=== PATIENT | male | born 2000 | race Caucasian/White ===

== ENCOUNTER 2022-03-02 15:06 | Observation (INO) | payer BC ==
[~2022-03-02] VITALS: Ht 193 cm; Wt 60.0 kg
[2022-03-02] VITALS (305 sets, daily range): BP systolic 135–140; BP diastolic 85–93; PULSE 105–112; TEMP 98.5–99.1; O2SAT 96–100
[2022-03-02 15:32] LABS: BASO % 0.3 % (0.0-2.0); GRAN # 4.2 K/mm3 (1.4-6.5); GRAN % 67.7 % (42.2-75.2); HEMATOCRIT 43.8 % (42.0-52.0); HEMOGLOBIN 14.9 g/dl (13.5-18.0); LYMPH # 1.5 K/mm3 (1.2-3.4); LYMPH % 23.9 % (20.0-51.0); MEAN CELL VOLUME 80 fl (80.0-100.0); MEAN CORPUSCULAR HEMOGLOBIN 27 pg (27-31); MEAN CORPUSCULAR HGB CONC 34 g/dl (33.0-37.0); MONO # 0.5 K/mm3 (0.1-0.6); MONO % 7.9 % (1.7-9.3); PLATELET COUNT 282 K/mm3 (130-400); RED BLOOD COUNT 5.46 M/mm3 (4.20-5.60); REDCELL DISTRIBUTION WIDTH-CV 11.6 % (11.5-14.5)
[2022-03-02 15:41] LABS: COLLECTION METHOD CLEAN CATCH
[2022-03-02 15:49] LABS: MUCOUS Present (NOT PRESENT); SQUAMOUS EPITHELIAL None Seen /hpf (0-10); URINE BACTERIA None Seen /hpf (NONE SEEN); URINE RBC None Seen /hpf (0-2)
[2022-03-02 15:51] LABS: URINE APPEARANCE Clear (CLEAR/HAZY); URINE BLOOD Negative (NEGATIVE); URINE COLOR Yellow (YELLOW); URINE GLUCOSE 3+ (NEGATIVE); URINE KETONE 2+ (NEGATIVE); URINE NITRATE Negative (NEGATIVE); URINE PROTEIN(semi-quant) Negative (NEGATIVE); URINE UROBILINOGEN 0.2 E.U/dL (0.2-1.0)
[2022-03-02 15:52] LABS: ALANINE AMINOTRANSFERASE 49 U/L (0-55); ALBUMIN 4.3 gm/dL (3.5-5.0); ALKALINE PHOSPHATASE 106 U/L (40-150); ANION GAP 17 mmol/L (7-16); AST,SGOT 21 U/L (5-34); BILIRUBIN,TOTAL 0.7 mg/dL (0.2-1.2); BLOOD UREA NITROGEN 21 mg/dL (9-21); CALCIUM 9.7 mg/dL (8.4-10.2); CARBON DIOXIDE 18 mmol/L (22-29); CHLORIDE 95 mmol/L (98-107); CREATININE, serum 1.17 mg/dL (0.72-1.25); LIPASE 47 U/L (8-78); POTASSIUM 4.5 mmol/L (3.5-4.5); SODIUM 130 mmol/L (136-145); TOTAL PROTEIN 7.8 gm/dL (6.2-8.1)
[2022-03-02 16:01] LABS: GLUCOSE 697 mg/dL (70-99)
[2022-03-02 16:12] LABS: ACETONE,SERUM NEGATIVE
[2022-03-02 17:12] LABS: MAGNESIUM 1.9 mg/dL (1.6-2.6); PHOSPHOROUS 4.9 mg/dL (2.3-4.7)
[2022-03-02] MEDS ORDERED: PROZAC 20MG20 MG PO (17:36)
[2022-03-02 19:14] LABS: CREATININE, serum 0.85 mg/dL (0.72-1.25); POTASSIUM 3.5 mmol/L (3.5-4.5)
--- NOTE | 2022-03-02 19:55 | NUR ---
1720: PT ARRIVED TO ICU7 VIA ER STRETCHER WITH MOM AT BEDSIDE. PT A&O, ON ROOM AIR. VSS. PT DENIES ANY PAIN. PT ARRIVED ON INSULIN GTT @ 5 UNITS/HR. PT BS CHECKED @ 1730. PROTOCOL FOLLOWED. PT DENIES ANY CONCERNS. ALL QUESTIONS ANSWERED. 1914: REPORT GIVEN TO DOROTA ROD
[2022-03-02 21:26] LABS: CALCIUM 8.8 mg/dL (8.4-10.2); CREATININE, serum 0.78 mg/dL (0.72-1.25); POTASSIUM 3.3 mmol/L (3.5-4.5)
--- NOTE | 2022-03-02 23:09 | NUR ---
PT BLOOD SUGAR AT 2230 WAS 189 WHEN PREVIOUSLY WAS 300. DRIP WAS HELD FOR 30 MINUTES PER PROTOCOL AND RESTARTED AT THIS TIME AT THE TITRATED RATE.
[2022-03-02 23:19] LABS: CALCIUM 8.9 mg/dL (8.4-10.2); CREATININE, serum 0.79 mg/dL (0.72-1.25); POTASSIUM 3.6 mmol/L (3.5-4.5)
[2022-03-03] VITALS (609 sets, daily range): BP systolic 121–136; BP diastolic 70–88; PULSE 79–110; TEMP 98.2–98.7; O2SAT 91–100
--- NOTE | 2022-03-03 01:30 | NUR ---
INSULIN DRIP PUT ON HOLD PER PROTOCOL. WILL RECHECK SUGAR IN 30 MIN
[2022-03-03 02:01] LABS: CREATININE, serum 0.77 mg/dL (0.72-1.25); POTASSIUM 3.7 mmol/L (3.5-4.5)
[2022-03-03 03:27] LABS: CALCIUM 8.9 mg/dL (8.4-10.2); CREATININE, serum 0.77 mg/dL (0.72-1.25); POTASSIUM 3.6 mmol/L (3.5-4.5)
--- NOTE | 2022-03-03 04:09 | NUR ---
LAST 4 BLOOD SUGAR CHECKS HAVE BEEN IN THE 100S. ANION GAP HAS CLOSED AND CO2 LEVELS ARE WNL. CALLED JEWELS JULIAN FOR CONFIRMATION TO KEEP INSULIN DRIP RUNNING. SHE CONFIRMED THAT SHE HAD BEEN IN COMMUNICATION WITH DR. HODGE AND DR. HODGE WANTED THE DRIP TO RUN THROUGHOUT THE NIGHT. WILL CONTINUE THE INSULIN DRIP ORDERED.
[2022-03-03 05:07] LABS: BASO % 0.5 % (0.0-2.0); EOS % 0.3 % (0.0-4.0); GRAN # 2.7 K/mm3 (1.4-6.5); GRAN % 46.8 % (42.2-75.2); HEMATOCRIT 37.1 % (42.0-52.0); LYMPH # 2.4 K/mm3 (1.2-3.4); LYMPH % 41.6 % (20.0-51.0); MEAN CELL VOLUME 81 fl (80.0-100.0); MEAN CORPUSCULAR HEMOGLOBIN 27 pg (27-31); MEAN CORPUSCULAR HGB CONC 34 g/dl (33.0-37.0); MEAN PLATELET VOLUME 10.8 fl (7.4-10.4); MONO # 0.6 K/mm3 (0.1-0.6); MONO % 10.6 % (1.7-9.3); PLATELET COUNT 256 K/mm3 (130-400); RED BLOOD COUNT 4.59 M/mm3 (4.20-5.60); REDCELL DISTRIBUTION WIDTH-CV 11.6 % (11.5-14.5)
[2022-03-03 05:13] LABS: HEMOGLOBIN 12.5 g/dl (13.5-18.0)
[2022-03-03 05:19] LABS: CREATININE, serum 0.73 mg/dL (0.72-1.25)
--- NOTE | 2022-03-03 06:29 | NUR ---
INSULIN DRIP PUT ON HOLD PER PROTOCOL. WILL ADMINISTER 8OZ OF JUICE AND RECHECK BLOOD SUGAR PER PROTOCOL.
--- NOTE | 2022-03-03 07:00 | NUR ---
BEDSIDE REPORT RECEIVED FROM VIOLA RAYA. PT ALERT AND ORIENTED THIS AM. REMAINS ON INSULIN GTT. PT OFFERS NO COMPLAINTS. LIES SUPINE WITH HOB ELEVATED.
[2022-03-03 07:26] LABS: CALCIUM 8.7 mg/dL (8.4-10.2); CREATININE, serum 0.73 mg/dL (0.72-1.25); POTASSIUM 4.6 mmol/L (3.5-4.5)
[2022-03-03 09:34] LABS: CALCIUM 8.6 mg/dL (8.4-10.2); CREATININE, serum 0.76 mg/dL (0.72-1.25); POTASSIUM 3.9 mmol/L (3.5-4.5)
[2022-03-03 11:32] LABS: CREATININE, serum 0.74 mg/dL (0.72-1.25); POTASSIUM 4.2 mmol/L (3.5-4.5)
--- NOTE | 2022-03-03 16:20 | NUR ---
SW met with patient to complete intake. Patients father at bedside. Patient lives at home alone in [place] and works at [employer]. He is not a student. He is fully independent with his ADL's and has no DME needs.PCP is Dr. Parr and he utilizes [facility] pharmacy. He is not and his parents are his established legal NOK.
--- NOTE | 2022-03-03 18:12 | NUR ---
PT HAS DONE WELL THROUGH OUT SHIFT. PT HAS BEEN ABLE TO PERFORM FINGER STICK GLUCOSE CHECKS AND ADMINISTER INSULIN WITH SYRINGE WITH DIRECTIONS FROM THIS NURSE. PT AND PARENTS ASK APPROPRIATE QUESTIONS AND HAVE BEEN GIVEN PRINTED EDUCATION ON LEVEMIR, NOVOLOG, TYPE 1 DIABETES, AND HOW TO TREAT LOW BLOOD SUGARS. PT ENCOURAGED TO ASK QUESTIONS.
--- NOTE | 2022-03-03 20:30 | NUR ---
PT ASSESSMENT COMPLETED. PT IS ALERT AND ORIENTED AND AMBULATES INDEPENDENTLY. PT EDUCATED ON NEW DIABETES DIAGNOSIS. PT WAS ABLE TO PERFORM GLUCOSE CHECK ON HIMSELF AND ALSO ADMINISTERED THE INSULIN INJECTION WELL. PT WAS GIVEN EDUCATION PACKETS BY VIOLA THRASHER. ASKED PT IF HE HAD ANY QUESTIONS. PT ASKED WHAT AN A1C WAS. RN EDUCATED PT ON THE A1C LAB. PTS VSS.
[2022-03-04] VITALS (7 sets, daily range): BP systolic 102–138; BP diastolic 75–83; PULSE 83–115; TEMP 97.6–98.4
[2022-03-04 06:17] LABS: BASO % 0.4 % (0.0-2.0); EOS % 0.8 % (0.0-4.0); GRAN % 42.7 % (42.2-75.2); HEMOGLOBIN 13.2 g/dl (13.5-18.0); LYMPH # 2.2 K/mm3 (1.2-3.4); LYMPH % 45.8 % (20.0-51.0); MEAN CELL VOLUME 81 fl (80.0-100.0); MEAN CORPUSCULAR HEMOGLOBIN 27 pg (27-31); MEAN CORPUSCULAR HGB CONC 34 g/dl (33.0-37.0); MEAN PLATELET VOLUME 11.1 fl (7.4-10.4); MONO # 0.5 K/mm3 (0.1-0.6); MONO % 10.1 % (1.7-9.3); PLATELET COUNT 263 K/mm3 (130-400); RED BLOOD COUNT 4.82 M/mm3 (4.20-5.60); REDCELL DISTRIBUTION WIDTH-CV 11.6 % (11.5-14.5)
--- NOTE | 2022-03-04 06:24 | NUR ---
PT VSS ALL SHIFT. PT AMBULATES AND VOIDS INDEPENDENTLY. PT HAS SLEPT BETWEEN DISTURBANCES.
[2022-03-04 06:41] LABS: CALCIUM 9.2 mg/dL (8.4-10.2); CREATININE, serum 0.77 mg/dL (0.72-1.25); MAGNESIUM 1.6 mg/dL (1.6-2.6); POTASSIUM 4.6 mmol/L (3.5-4.5)
--- NOTE | 2022-03-04 11:27 | NUR ---
PT ASSESSMENT COMPLETED. PT IS A&O, INDEPENDENT, VSS. PT EDUCATION PROVIDED TO PT ON DIABETES AND INSULIN YESTERDAY. PT PRACTICING GIVING HIMSELF INSULIN INJECTIONS WITH THIS NURSE PRESENT. ALL QUESTIONS ANSWERED. CALL LIGHT WITHIN REACH.
--- NOTE | 2022-03-04 12:40 | NUR ---
REPORT GIVEN TO VIOLA TOLBERT ON MEDICAL. PT TRANSFERRING TO MEDICAL FLOOR. ALL QUESTIONS ANSWERED. PT BS CHECKED PRIOR TO DEPARTURE. INSULIN NOT GIVEN AT THIS TIME DUE TO PT HAVING NOT ORDERED LUNCH YET. VIOLA TOLBERT AWARE. PT STATED HE WOULD ORDER LUNCH WHEN HE GOT UPSTAIRS. PT ESCORTED TO ROOM 351, DAD AT BEDSIDE. TOMASZ ROD NOTIFIED, BOARD DESIGN ENGINEER WAS IN ROOM TAKING VITALS.
--- NOTE | 2022-03-04 12:58 | NUR ---
Patient admitted to room 351 from ICU. Pharmacy, medications, and allergies reviewed. Shift assessment completed. Patient A&O, VSS. Patient denies any further pain, discomfort, SOA, or further needs at this time. Call light in reach.
--- NOTE | 2022-03-04 13:31 | NUR ---
Patient administered own insulin using proper technique.
--- NOTE | 2022-03-04 18:34 | NUR ---
Pt awake and laying in bed. This DOOR REPAIRER BUS reiterated pt education on proper insulin administeration; Pt administered own insulin using proper technique. No further requests at this time. Call light within reach.
[2022-03-05 00:07] VITALS: BP 124/67; PULSE 83; TEMP 97.9
[2022-03-05 04:02] VITALS: BP 121/65; PULSE 91; TEMP 98
[2022-03-05 06:53] LABS: BASO % 0.4 % (0.0-2.0); EOS % 0.4 % (0.0-4.0); GRAN % 41.9 % (42.2-75.2); HEMATOCRIT 41.4 % (42.0-52.0); HEMOGLOBIN 13.6 g/dl (13.5-18.0); LYMPH # 2.3 K/mm3 (1.2-3.4); LYMPH % 47.2 % (20.0-51.0); MEAN CELL VOLUME 83 fl (80.0-100.0); MEAN CORPUSCULAR HEMOGLOBIN 27 pg (27-31); MEAN CORPUSCULAR HGB CONC 33 g/dl (33.0-37.0); MEAN PLATELET VOLUME 11.5 fl (7.4-10.4); MONO # 0.5 K/mm3 (0.1-0.6); MONO % 10.1 % (1.7-9.3); PLATELET COUNT 274 K/mm3 (130-400); RED BLOOD COUNT 5.02 M/mm3 (4.20-5.60); REDCELL DISTRIBUTION WIDTH-CV 11.5 % (11.5-14.5)
[2022-03-05 07:39] VITALS: BP 118/71; PULSE 92; TEMP 98
[2022-03-05] MEDS ORDERED: BD ALCOHOL1 SWA MC (10:14)
[2022-03-05] MEDS ORDERED: GLUCOSE TEST ST1 DEV MC (10:14)
[2022-03-05] MEDS ORDERED: CONTROL SOLUTI1 EAC1 MC (10:14)
[2022-03-05] MEDS ORDERED: GLUTOSE 1515 GM PO (10:14)
[2022-03-05] MEDS ORDERED: LANCETS MC (10:14)
[2022-03-05] MEDS ORDERED: INSULIN PEN NE1 EAC1 MC (10:14)
[2022-03-05] MEDS ORDERED: FREESTYLE PREC1 EAC5 MC (10:14)
[2022-03-05] MEDS ORDERED: LANTUS SOLOS100 U/ML SQ (10:16)
[2022-03-05] MEDS ORDERED: NOVOLOG FLEX100 U/ML SQ (10:19)
[2022-03-05] MEDS ORDERED: GLUCAGON EMERGEN1 M1 SQ (10:19)
[2022-03-05 11:39] VITALS: BP 134/66; PULSE 106; TEMP 97.9
== END 2022-03-05 14:07 | disposition home or self-care (01) ==
LOC: COL.ER 15:06 → ICU 16:15 → MEDICAL 03-04 12:40
PROVIDERS: Emergency Medicine; ADMIT Hospitalist
DX: E11.65 Type 2 diabetes mellitus with hyperglycemia (principal); E11.10 Type 2 diabetes mellitus with ketoacidosis without coma; N17.9 Acute kidney failure, unspecified; R00.0 Tachycardia, unspecified; F32.A Depression, unspecified; E87.6 Hypokalemia; E05.90 Thyrotoxicosis, unspecified without thyrotoxic crisis or storm
CPT/HCPCS: G0378; J1650; J1815; J3480; J7030